=== PATIENT | male | born 1985 | race Two or more races ===

== ENCOUNTER 2017-08-15 09:38 | Emergency (ER) | payer OTHER ==
[~2017-08-15] VITALS: Ht 180.3 cm; Wt 99.8 kg
[2017-08-15 09:42] VITALS: BP 160/97
== END 2017-08-15 10:30 | disposition home or self-care (01) ==
LOC: ER 09:40
DX: F41.9 Anxiety disorder, unspecified (principal); R07.89 Other chest pain; I10 Essential (primary) hypertension; Z90.89 Acquired absence of other organs
CPT/HCPCS: A4606; Z7610